=== PATIENT | female | born 1970 | race African-American/Black ===

== ENCOUNTER 2020-04-07 12:21 | Emergency (ER) | payer SELFPAY ==
[2020-04-07] MEDS ORDERED: HYDROcodone/Acetaminophen 10/325 mg Tablet ONE (12:53)
[2020-04-07] MEDS ORDERED: Lorazepam 1 MG TAB ONE (14:03)
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
== END 2020-04-07 14:52 | disposition home or self-care (01) ==
LOC: ERS 12:21
DX: M54.5 Low back pain (principal); M54.6 Pain in thoracic spine; E04.1 Nontoxic single thyroid nodule; M54.2 Cervicalgia; M06.9 Rheumatoid arthritis, unspecified; E11.9 Type 2 diabetes mellitus without complications; I10 Essential (primary) hypertension; F17.210 Nicotine dependence, cigarettes, uncomplicated; V89.2XXA Person injured in unspecified motor-vehicle accident, traffic, initial encounter
CPT/HCPCS: 72125; 72128; 72131; 93005